=== PATIENT | male | born 1995 | race Caucasian/White ===

== ENCOUNTER 2016-09-18 16:57 | Emergency (ER) | payer BC ==
[~2016-09-18] VITALS: Ht 175.3 cm; Wt 58.5 kg
[2016-09-18 17:06] VITALS: BP 105/58
[2016-09-18] MEDS ORDERED: KETOROLAC 30 MG/ML VIAL IVP ONE (18:50)
[2016-09-18] MEDS ORDERED: NACL 0.9% 1,000 ML IV ONE (18:50)
[2016-09-18] MEDS ORDERED: ONDANSETRON 4 MG/2 ML VIAL IVP ONE (18:50)
--- NOTE | 2016-09-18 19:02 | NUR ---
PATIENT PRESENTS TO ED WITH C/O GENERALYZED BODY ACHE WITH NAUSEA; TOOK 10MG MELATONIN LAST NIGHT AT MIDNIGHT;DENIES ANY MEDICAL HX;PT STATES 'I JUST DON'T WHAT TO DO SO I CAME HERE";SKIN IS PINK/WARM/DRY; AAOX4 WITH EVEN AND STEADY GAIT; LUNGS CLEAR BL; HR EVEN AND REGULAR; PT DENIES ANY FEVER, CP, SOB, OR COUGH AT THIS TIME; PATIENT STATES PAIN OF 6/10 AT THIS TIME;PATIENT POSITIONED FOR COMFORT; HOB ELEVATED; BEDRAILS UP X2; ALL MONITORS IN PLACED;BED DOWN. ER MD WILL BE NOTIFIED;
--- NOTE | 2016-09-18 19:05 | NUR ---
LASHONDA CHAKRABORTY AT BEDSIDE.
[2016-09-18 19:20] VITALS: BP 108/63
--- NOTE | 2016-09-18 19:20 | NUR ---
Patient discharged with v/s stable. Written and verbal after care instructions given and explained. Patient verbalized understanding. Ambulatory with steady gait. All questions addressed prior to discharge. Advised to follow up with PMD.
== END 2016-09-18 19:20 | disposition home or self-care (01) ==
LOC: MED 16:57
DX: M79.1 Myalgia (principal); R53.1 Weakness
CPT/HCPCS: 96374; 96375; 99284; J1885; J2405; J7030